=== PATIENT | female | born 1995 | race Caucasian/White ===

== ENCOUNTER 2020-11-28 18:59 | Emergency (ER) | payer MEDICAID, SELFPAY ==
[2020-11-28 19:19] VITALS: BP 127/84; PULSE 71; RESP 18; TEMP 36.8; O2SAT 100; BMI 46.1
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
[2020-11-28] MEDS: HYDROcodone-acetaminophen 5-325 mg Tablet 1 TAB PO (23:00)
[2020-11-28 23:11] VITALS: BP 118/72; PULSE 72; RESP 18; O2SAT 99
== END 2020-11-28 23:00 | disposition home or self-care (01) ==
PROVIDERS: Emergency Provider Emergency Medicine
DX: M54.2 Cervicalgia (principal); M25.531 Pain in right wrist; Y04.8XXA Assault by other bodily force, initial encounter
CPT/HCPCS: 72125; 73110; 99283